=== PATIENT | female | born 1990 | race African-American/Black ===

== ENCOUNTER 2017-06-12 17:02 | Emergency (ER) | payer OTHER ==
[~2017-06-12] VITALS: Ht 167.6 cm; Wt 82.0 kg
[2017-06-12 17:46] VITALS: BP 134/89
== END 2017-06-12 19:25 | disposition left against medical advice (07) ==
LOC: ER 17:42
DX: R07.9 Chest pain, unspecified (principal); Z53.21 Procedure and treatment not carried out due to patient leaving prior to being seen by health care provider

== ENCOUNTER 2018-02-23 00:34 | Emergency (ER) | payer OTHER ==
[~2018-02-23] VITALS: Ht 165.1 cm; Wt 92.0 kg
[2018-02-23 03:25] VITALS: BP 118/78
== END 2018-02-23 03:30 | disposition home or self-care (01) ==
LOC: ER 00:43
DX: H92.01 Otalgia, right ear (principal)
CPT/HCPCS: 99281

== ENCOUNTER 2019-03-25 00:30 | Emergency (ER) | payer SELFPAY ==
[~2019-03-25] VITALS: Ht 165.1 cm; Wt 86.0 kg
[2019-03-25 10:26] VITALS: BP 12/81
== END 2019-03-25 10:28 | disposition home or self-care (01) ==
LOC: ER 00:30
DX: M25.551 Pain in right hip (principal); M79.661 Pain in right lower leg; M79.642 Pain in left hand; R10.0 Acute abdomen; M79.89 Other specified soft tissue disorders; V49.49XA Driver injured in collision with other motor vehicles in traffic accident, initial encounter; Y93.89 Activity, other specified; Y92.89 Other specified places as the place of occurrence of the external cause
CPT/HCPCS: 73130; 73502; 73590; 99284; Z7610